=== PATIENT | male | born 1945 | race Caucasian/White ===

== ENCOUNTER 2018-07-23 11:00 | Emergency (ER) | payer BC ==
[2018-07-23 11:37] VITALS: BP 156/82; PULSE 88; RESP 20; TEMP 98.2
--- NOTE | 2018-07-23 14:25 | ED ---
Psych HPI - General Chief Complaint: Psychiatric Symptoms Stated Complaint: mental health Time Seen by Provider: 07/23/18 12:09 Source: patient, family, RN notes reviewed Mode of arrival: wheelchair - History of Present Illness Initial Comments: This is a patient with history of schizophrenia who is here for evaluation for increasing symptoms. He has no suicidal thought or ideation he apparently was possibly missed some of his medication earlier in the month. He was just discharged from the rehab unit [facility]. He did have lab work done this morning with compared with previous lab work. No other complaints this time MD Complaint: other - Related Data Home Medications Medication Instructions Recorded Confirmed ARIPiprazole [Abilify] 10 mg PO DAILY 07/23/18 07/23/18 Acetaminophen [Tylenol] 650 mg PO Q4H PRN 07/23/18 07/23/18 Albuterol Sulfate [Proventil Hfa] 1 - 2 puff INHALATION Q6HR PRN 07/23/18 Bisacodyl [Dulcolax] 10 mg RECTAL DAILY PRN 07/23/18 07/23/18 Famotidine [Pepcid] 20 mg PO BID 07/23/18 07/23/18 Furosemide [Lasix] 20 mg PO DAILY 07/23/18 07/23/18 Hydrocodone/Acetaminophen [Pullman 1 tab PO Q4H PRN 07/23/18 07/23/18 10-325] Levothyroxine Sodium [Synthroid] 100 mcg PO DAILY 07/23/18 07/23/18 Potassium Chloride [Klor-Con 20] 20 meq PO DAILY 07/23/18 07/23/18 Sennosides/Docusate Sodium 1 tab PO BID 07/23/18 07/23/18 [Senna-S Laxative Tablet] Tamsulosin HCl [Flomax] 0.4 mg PO HS 07/23/18 07/23/18 lamoTRIgine [LaMICtal] 200 mg PO TID 07/23/18 07/23/18 traZODone HCL [Desyrel] 100 mg PO HS 07/23/18 07/23/18 Allergies Allergy/AdvReac Type Severity Reaction Status Date / Time No Known Allergies Allergy Verified 07/23/18 13:23 Review of Systems ROS Statement: Those systems with pertinent positive or pertinent negative responses have been documented in the HPI. ROS Other: All systems not noted in ROS Statement are negative. Past Medical History Past Medical History: Rheumatoid Arthritis (RA), Thyroid Disorder History of Any Multi-Drug Resistant Organisms: None Reported Past Surgical History: Bowel Resection Additional Past Surgical History / Comment(s): Colectomy Past Psychological History: Anxiety, Depression, Schizophrenia Smoking Status: Never smoker Past Alcohol Use History: None Reported Past Drug Use History: None Reported General Exam - General Exam Comments Initial Comments: This is a well-developed well-nourished awake alert oriented 3 male Limitations: no limitations General appearance: alert, in no apparent distress Head exam: Present: atraumatic, normocephalic, normal inspection Eye exam: Present: normal appearance, PERRL, EOMI. Absent: scleral icterus, conjunctival injection, periorbital swelling ENT exam: Present: normal exam, mucous membranes moist Neck exam: Present: normal inspection. Absent: tenderness, meningismus, lymphadenopathy Respiratory exam: Present: normal lung sounds bilaterally. Absent: respiratory distress, wheezes, rales, rhonchi, stridor Cardiovascular Exam: Present: regular rate, normal rhythm, normal heart sounds. Absent: systolic murmur, diastolic murmur, rubs, gallop, clicks GI/Abdominal exam: Present: soft, normal bowel sounds. Absent: distended, tenderness, guarding, rebound, rigid Extremities exam: Present: normal inspection, full ROM, normal capillary refill. Absent: tenderness, pedal edema, joint swelling, calf tenderness Back exam: Present: normal inspection Neurological exam: Present: alert, oriented X3, CN II-XII intact Psychiatric exam: Present: flat affect, other Skin exam: Present: warm, dry, intact, normal color. Absent: rash Course Vital Signs 07/23/18 11:33 Temperature 98.2 F Pulse Rate 88 Respiratory 20 Rate Blood Pressure 156/82 O2 Sat by Pulse 99 Oximetry Medical Decision Making - Medical Decision Making I did review the lab work that was available. Patient was evaluated by psychiatric service and currently is not a risk to himself after discussion with family members able to take him home. He will follow palpation Disposition Clinical Impression: Schizophrenia Disposition: HOME SELF-CARE Condition: Good Instructions: Schizophrenia (ED) Is patient prescribed a controlled substance at d/c from ED?: No Referrals: Marsha Hu MD [Primary Care Provider] - 1-2 days
== END 2018-07-23 14:58 | disposition home or self-care (01) ==
LOC: EC 11:00
DX: F20.9 Schizophrenia, unspecified (principal); F41.9 Anxiety disorder, unspecified; F32.9 Major depressive disorder, single episode, unspecified; Z79.899 Other long term (current) drug therapy
CPT/HCPCS: 82075; 99283

== ENCOUNTER 2021-11-05 07:38 | Inpatient (IN) | payer MEDICARE, OTHER ==
[2021-11-05 08:25] LABS: Glucose,Whole Blood 105 mg/dL (75-99)
--- NOTE | 2021-11-05 08:28 | ED ---
Altered Mental Status HPI - General Chief Complaint: Altered Mental Status Stated Complaint: Mental Health Source: patient, EMS Mode of arrival: EMS Limitations: altered mental status - History of Present Illness Initial Comments: 76-year-old male with past medical history of schizophrenia, thyroid disorder, rheumatoid arthritis presents to the emergency department with altered mental status. EMS and provides the history. State that the patient was mildly confused yesterday however seemed to correct over the course of the day. This morning the patient awoke and did not recognize his . He was attempting to use his TV remote and incentive spirometer to call EMS. He has a history of schizophrenia. He was recently released from [facility] after diagn osis of pneumonia and renal failure. denies that he's had any missed doses of his psychiatric medications. No suicidal or homicidal ideations. Patient is only answering selected questions and therefore history is difficult to obtain. EMS arrived on scene and found the patient's oxygen to be 88%. He does have sleep apnea. Does not wear a CPAP as it does not fit his face. reports th at they were supposed to send him home on oxygen at [facility] but did not - Related Data Home Medications Medication Instructions Recorded Confirmed ARIPiprazole [Abilify] 10 mg PO DAILY 07/23/18 11/05/21 Furosemide [Lasix] 20 mg PO DAILY 07/23/18 11/05/21 Tamsulosin HCl [Flomax] 0.4 mg PO BID 07/23/18 11/05/21 lamoTRIgine [LaMICtal] 200 mg PO TID 07/23/18 11/05/21 traZODone HCL [Desyrel] 100 mg PO HS 07/23/18 11/05/21 Allopurinol [Zyloprim] 300 mg PO DAILY 11/05/21 11/05/21 Bethanechol Chloride 50 mg PO TID 11/05/21 11/05/21 Levothyroxine Sodium 88 mcg PO DAILY 11/05/21 11/05/21 Metoprolol Succinate (ER) [Toprol 25 mg PO DAILY 11/05/21 11/05/21 Xl] Mupirocin 2% Oint [Bactroban 2% 1 applic TOPICAL TID 11/05/21 11/05/21 Oint] Allergies Allergy/AdvReac Type Severity Reaction Status Date / Time Calcium Channel Blocking AdvReac Swelling Verified 11/05/21 09:17 Agent Dilt of feet Calcium Channel Blocking AdvReac Swelling Verified 11/05/21 09:17 Agents-Dih of feet lansoprazole [From Prevacid] AdvReac Swelling Verified 11/05/21 09:17 of feet Review of Systems ROS Statement: Those systems with pertinent positive or pertinent negative responses have been documented in the HPI. ROS Other: All systems not noted in ROS Statement are negative. Past Medical History Past Medical History: Rheumatoid Arthritis (RA), Thyroid Disorder History of Any Multi-Drug Resistant Organisms: None Reported Past Surgical History: Bowel Resection Additional Past Surgical History / Comment(s): Colectomy Past Psychological History: Anxiety, Depression, Schizophrenia Smoking Status: Unknown if ever smoked Past Alcohol Use History: None Reported Past Drug Use History: None Reported - Past Family History Mother Additional Family Medical History / Comment(s): Cancer General Exam Limitations: altered mental status Course Vital Signs 11/05/21 11/05/21 11/05/21 07:40 09:00 10:26 Temperature 97.5 F L Pulse Rate 74 68 66 Respiratory 20 20 18 Rate Blood Pressure 118/64 128/65 137/78 O2 Sat by Pulse 93 L 97 99 Oximetry 11/05/21 11/05/21 11:27 15:17 Temperature Pulse Rate 69 71 Respiratory 18 18 Rate Blood Pressure 159/83 136/75 O2 Sat by Pulse 98 99 Oximetry Medical Decision Making - Medical Decision Making Upon arrival patient was placed into 12. A thorough history and physical exam was performed. Patient is placed on 2 L of oxygen. Laboratory studies are conducted. Patient has pancytopenia which is stable. CO2 mildly high at 57. Urinalysis demonstrates 6 white blood cells with few bacteria. CT of the brain is performed which demonstrates no acute intracranial abnormality or gross space-occupying lesion. No acute traumatic bony injury of the cervical spine. Chest x-ray demonstrates acute pulmonary edema. Associated infection can't be excluded. I discussed the results with Dr. Silver who accepted admission of the patient. Patient pending a bed on the floor - Lab Data Result diagrams: 11/05/21 08:25 11/05/21 08:25 Lab Results 11/05/21 11/05/21 11/05/21 Range/Units 08:09 08:19 08:25 WBC 2.3 L (3.8-10.6) k/uL RBC 2.72 L (4.30-5.90) m/uL Hgb 8.3 L (13.0-17.5) gm/dL Hct 27.1 L (39.0-53.0) % MCV 99.7 (80.0-100.0) fL MCH 30.6 (25.0-35.0) pg MCHC 30.7 L (31.0-37.0) g/dL RDW 15.2 (11.5-15.5) % Plt Count 106 L (150-450) k/uL MPV 8.4 Neutrophils % 58 % Lymphocytes % 24 % Monocytes % 6 % Eosinophils % 9 % Basophils % 1 % Neutrophils # 1.4 (1.3-7.7) k/uL Lymphocytes # 0.6 L (1.0-4.8) k/uL Monocytes # 0.2 (0-1.0) k/uL Eosinophils # 0.2 (0-0.7) k/uL Basophils # 0.0 (0-0.2) k/uL Hypochromasia Moderate Macrocytosis Slight PT (9.0-12.0) sec INR (<1.2) APTT (22.0-30.0) sec VBG pH (7.31-7.41) VBG pCO2 (37-51) mmHg VBG HCO3 (24-28) mmol/L Sodium (137-145) mmol/L Potassium (3.5-5.1) mmol/L Chloride (98-107) mmol/L Carbon Dioxide (22-30) mmol/L Anion Gap mmol/L BUN (9-20) mg/dL Creatinine (0.66-1.25) mg/dL Est GFR (CKD-EPI)AfAm (>60 ml/min/1.73 sqM) Est GFR (CKD-EPI)NonAf (>60 ml/min/1.73 sqM) Glucose (74-99) mg/dL POC Glucose (mg/dL) 105 H (75-99) mg/dL POC Glu Audio Production Instructor ID Otto Diane Plasma Lactic Acid David (0.7-2.0) mmol/L Calcium (8.4-10.2) mg/dL Total Bilirubin (0.2-1.3) mg/dL AST (17-59) U/L ALT (4-49) U/L Alkaline Phosphatase (38-126) U/L Ammonia (<30) umol/L Troponin I (0.000-0.034) ng/mL Total Protein (6.3-8.2) g/dL Albumin (3.5-5.0) g/dL TSH (0.465-4.680) mIU/L Free T4 (0.78-2.19) ng/dL Urine Color Yellow Urine Appearance Clear (Clear) Urine pH 7.0 (5.0-8.0) Ur Specific [place] 1.019 (1.001-1.035) Urine Protein 1+ H (Negative) Urine Glucose (UA) Negative (Negative) Urine Ketones Negative (Negative) Urine Blood Trace H (Negative) Urine Nitrite Negative (Negative) Urine Bilirubin Negative (Negative) Urine Urobilinogen <2.0 (<2.0) mg/dL Ur Leukocyte Esterase Small H (Negative) Urine RBC 17 H (0-5) /hpf Urine WBC 6 H (0-5) /hpf Urine Bacteria Few H (None) /hpf Urine Mucus Rare H (None) /hpf Salicylates mg/dL Urine Opiates Screen Not Detected (NotDetected) Ur Oxycodone Screen Not Detected (NotDetected) Urine Methadone Screen Not Detected (NotDetected) Ur Propoxyphene Screen Not Detected (NotDetected) Acetaminophen ug/mL Ur Barbiturates Screen Not Detected (NotDetected) U Tricyclic Antidepress Not Detected (NotDetected) Ur Phencyclidine Scrn Not Detected (NotDetected) Ur Amphetamines Screen Not Detected (NotDetected) U Methamphetamines Scrn Not Detected (NotDetected) U Benzodiazepines Scrn Not Detected (NotDetected) Urine Cocaine Screen Not Detected (NotDetected) U Marijuana (THC) Screen Not Detected (NotDetected) Serum Alcohol mg/dL 11/05/21 11/05/21 11/05/21 Range/Units 08:25 08:25 08:25 WBC (3.8-10.6) k/uL RBC (4.30-5.90) m/uL Hgb (13.0-17.5) gm/dL Hct (39.0-53.0) % MCV (80.0-100.0) fL MCH (25.0-35.0) pg MCHC (31.0-37.0) g/dL RDW (11.5-15.5) % Plt Count (150-450) k/uL MPV Neutrophils % % Lymphocytes % % Monocytes % % Eosinophils % % Basophils % % Neutrophils # (1.3-7.7) k/uL Lymphocytes # (1.0-4.8) k/uL Monocytes # (0-1.0) k/uL Eosinophils # (0-0.7) k/uL Basophils # (0-0.2) k/uL Hypochromasia Macrocytosis PT 10.0 (9.0-12.0) sec INR 0.9 (<1.2) APTT 28.2 (22.0-30.0) sec VBG pH (7.31-7.41) VBG pCO2 (37-51) mmHg VBG HCO3 (24-28) mmol/L Sodium 138 (137-145) mmol/L Potassium 4.5 (3.5-5.1) mmol/L Chloride 103 (98-107) mmol/L Carbon Dioxide 31 H (22-30) mmol/L Anion Gap 4 mmol/L BUN 30 H (9-20) mg/dL Creatinine 1.35 H (0.66-1.25) mg/dL Est GFR (CKD-EPI)AfAm 58 (>60 ml/min/1.73 sqM) Est GFR (CKD-EPI)NonAf 50 (>60 ml/min/1.73 sqM) Glucose 99 (74-99) mg/dL POC Glucose (mg/dL) (75-99) mg/dL POC Glu Audio Production Instructor ID Plasma Lactic Acid David 1.4 (0.7-2.0) mmol/L Calcium 8.9 (8.4-10.2) mg/dL Total Bilirubin 0.8 (0.2-1.3) mg/dL AST 35 (17-59) U/L ALT 25 (4-49) U/L Alkaline Phosphatase 40 (38-126) U/L Ammonia <9 (<30) umol/L Troponin I (0.000-0.034) ng/mL Total Protein 6.2 L (6.3-8.2) g/dL Albumin 3.4 L (3.5-5.0) g/dL TSH 4.980 H (0.465-4.680) mIU/L Free T4 1.03 (0.78-2.19) ng/dL Urine Color Urine Appearance (Clear) Urine pH (5.0-8.0) Ur Specific [place] (1.001-1.035) Urine Protein (Negative) Urine Glucose (UA) (Negative) Urine Ketones (Negative) Urine Blood (Negative) Urine Nitrite (Negative) Urine Bilirubin (Negative) Urine Urobilinogen (<2.0) mg/dL Ur Leukocyte Esterase (Negative) Urine RBC (0-5) /hpf Urine WBC (0-5) /hpf Urine Bacteria (None) /hpf Urine Mucus (None) /hpf Salicylates <1.0 mg/dL Urine Opiates Screen (NotDetected) Ur Oxycodone Screen (NotDetected) Urine Methadone Screen (NotDetected) Ur Propoxyphene Screen (NotDetected) Acetaminophen <10.0 ug/mL Ur Barbiturates Screen (NotDetected) U Tricyclic Antidepress (NotDetected) Ur Phencyclidine Scrn (NotDetected) Ur Amphetamines Screen (NotDetected) U Methamphetamines Scrn (NotDetected) U Benzodiazepines Scrn (NotDetected) Urine Cocaine Screen (NotDetected) U Marijuana (THC) Screen (NotDetected) Serum Alcohol <10 mg/dL 11/05/21 11/05/21 Range/Units 08:25 08:25 WBC (3.8-10.6) k/uL RBC (4.30-5.90) m/uL Hgb (13.0-17.5) gm/dL Hct (39.0-53.0) % MCV (80.0-100.0) fL MCH (25.0-35.0) pg MCHC (31.0-37.0) g/dL RDW (11.5-15.5) % Plt Count (150-450) k/uL MPV Neutrophils % % Lymphocytes % % Monocytes % % Eosinophils % % Basophils % % Neutrophils # (1.3-7.7) k/uL Lymphocytes # (1.0-4.8) k/uL Monocytes # (0-1.0) k/uL Eosinophils # (0-0.7) k/uL Basophils # (0-0.2) k/uL Hypochromasia Macrocytosis PT (9.0-12.0) sec INR (<1.2) APTT (22.0-30.0) sec VBG pH 7.36 (7.31-7.41) VBG pCO2 57 H (37-51) mmHg VBG HCO3 32 H (24-28) mmol/L Sodium (137-145) mmol/L Potassium (3.5-5.1) mmol/L Chloride (98-107) mmol/L Carbon Dioxide (22-30) mmol/L Anion Gap mmol/L BUN (9-20) mg/dL Creatinine (0.66-1.25) mg/dL Est GFR (CKD-EPI)AfAm (>60 ml/min/1.73 sqM) Est GFR (CKD-EPI)NonAf (>60 ml/min/1.73 sqM) Glucose (74-99) mg/dL POC Glucose (mg/dL) (75-99) mg/dL POC Glu Audio Production Instructor ID Plasma Lactic Acid David (0.7-2.0) mmol/L Calcium (8.4-10.2) mg/dL Total Bilirubin (0.2-1.3) mg/dL AST (17-59) U/L ALT (4-49) U/L Alkaline Phosphatase (38-126) U/L Ammonia (<30) umol/L Troponin I <0.012 (0.000-0.034) ng/mL Total Protein (6.3-8.2) g/dL Albumin (3.5-5.0) g/dL TSH (0.465-4.680) mIU/L Free T4 (0.78-2.19) ng/dL Urine Color Urine Appearance (Clear) Urine pH (5.0-8.0) Ur Specific [place] (1.001-1.035) Urine Protein (Negative) Urine Glucose (UA) (Negative) Urine Ketones (Negative) Urine Blood (Negative) Urine Nitrite (Negative) Urine Bilirubin (Negative) Urine Urobilinogen (<2.0) mg/dL Ur Leukocyte Esterase (Negative) Urine RBC (0-5) /hpf Urine WBC (0-5) /hpf Urine Bacteria (None) /hpf Urine Mucus (None) /hpf Salicylates mg/dL Urine Opiates Screen (NotDetected) Ur Oxycodone Screen (NotDetected) Urine Methadone Screen (NotDetected) Ur Propoxyphene Screen (NotDetected) Acetaminophen ug/mL Ur Barbiturates Screen (NotDetected) U Tricyclic Antidepress (NotDetected) Ur Phencyclidine Scrn (NotDetected) Ur Amphetamines Screen (NotDetected) U Methamphetamines Scrn (NotDetected) U Benzodiazepines Scrn (NotDetected) Urine Cocaine Screen (NotDetected) U Marijuana (THC) Screen (NotDetected) Serum Alcohol mg/dL - EKG Data EKG Comments: EKG demonstrates a sinus rhythm with a rate of 71. IN interval 215. QRS 19. QTC of 407. Q waves in lead 3. No acute ST segment elevations Disposition Clinical Impression: Acute encephalopathy, Psychosis, Abnormal urinalysis, Hypercarbia, Hypoxia, Pancytopenia Disposition: ADMITTED IP TO THIS [facility] Condition: Stable Is patient prescribed a controlled substance at d/c from ED?: No Decision to Admit Reason: Admit from EC Decision Date: 11/05/21 Decision Time: 11:01
[2021-11-05 08:31] LABS: Basophils % (A) 1 %; Eosinophils # (A) 0.2 k/uL (0-0.7); Eosinophils % (A) 9 %; HCT 27.1 % (39.0-53.0); HGB 8.3 gm/dL (13.0-17.5); Hypochromasia Moderate; Lymphocytes # (A) 0.6 k/uL (1.0-4.8); Lymphocytes % (A) 24 %; MCH 30.6 pg (25.0-35.0); MCHC 30.7 g/dL (31.0-37.0); MCV 99.7 fL (80.0-100.0); Macrocytosis Slight; Mean Platelet Volume 8.4; Monocytes # (A) 0.2 k/uL (0-1.0); Monocytes % (A) 6 %; Neutrophils # (A) 1.4 k/uL (1.3-7.7); Neutrophils % (A) 58 %; Platelet Count 106 k/uL (150-450); RBC 2.72 m/uL (4.30-5.90); RDW 15.2 % (11.5-15.5); WBC 2.3 k/uL (3.8-10.6)
[2021-11-05 08:36] LABS: VBG PH 7.36 (7.31-7.41)
[2021-11-05 08:42] LABS: Lactic Acid, Venous 1.4 mmol/L (0.7-2.0)
[2021-11-05 08:44] LABS: ALT 25 U/L (4-49); Acetaminophen <10.0 ug/mL; African American GFR (CKD) 58 (>60 ml/min/1.73 sqM); Alcohol <10 mg/dL; Anion Gap 4 mmol/L; Blood Urea Nitrogen 30 mg/dL (9-20); Calcium 8.9 mg/dL (8.4-10.2); Carbon Dioxide 31 mmol/L (22-30); Chloride 103 mmol/L (98-107); Glucose 99 mg/dL (74-99); Non-African American GFR(CKD) 50 (>60 ml/min/1.73 sqM); Salicylate <1.0 mg/dL; Sodium 138 mmol/L (137-145); Total Bilirubin 0.8 mg/dL (0.2-1.3)
[2021-11-05 08:53] LABS: Potassium 4.5 mmol/L (3.5-5.1)
[2021-11-05 08:54] LABS: AST 35 U/L (17-59); Albumin 3.4 g/dL (3.5-5.0); Alkaline Phosphatase 40 U/L (38-126); Total Protein 6.2 g/dL (6.3-8.2)
[2021-11-05 08:56] LABS: INR 0.9 (<1.2); Partial Thromboplastin Time 28.2 sec (22.0-30.0)
--- NOTE | 2021-11-05 09:14 | XR ---
EXAMINATION TYPE: XR chest 2V DATE OF EXAM: 11/05/2021 COMPARISON: X-ray dated 08/09/2017 HISTORY: Altered mental status TECHNIQUE: Frontal and lateral views of the chest are obtained. FINDINGS: Increased cardiac transverse diameter with pulmonary vascular congestion, prominent interstitial makcenzie ings and subtle alveolar opacities which could be related to incomplete lung expansion however associ ated pulmonary edema can't be excluded, please relate clinically. Suspected subtle opacity in the lef t retrocardiac location versus artifact, please correlate clinically to rule out infection. Elevated right hemidiaphragm. Questionable small left pleural effusion. No right-sided pleural effusi on or definite pneumothorax. Aortic atherosclerotic calcifications. Hiatal hernia cannot be excluded. Double scoliotic curvature of the thoracic spine. IMPRESSION: Findings are suggestive of acute pulmonary edema, associated infection can't be excluded , please correlate clinically. Other findings as described above.
[2021-11-05 09:32] LABS: Appearance,Urine Clear (Clear); Bacteria,Urine Few /hpf; Bilirubin,Urine Negative (Negative); Blood,Urine Trace (Negative); Color,Urine Yellow; Glucose,Urine (UA) Negative (Negative); Ketones,Urine Negative (Negative); Leukocyte Esterase,Urine Small (Negative); Mucus,Urine Rare /hpf; Nitrite,Urine Negative (Negative); Protein,Urine 1+ (Negative); RBC,Urine 17 /hpf (0-5); Specific Gravity,Urine 1.019 (1.001-1.035); Urobilinogen,Urine <2.0 mg/dL (<2.0); WBC,Urine 6 /hpf (0-5)
[2021-11-05 09:38] LABS: Amphetamine Screen,Urine Not Detected (NotDetected); Barbiturate Screen,Urine Not Detected (NotDetected); Benzodiazepines Screen,Urine Not Detected (NotDetected); Cocaine Screen,Urine Not Detected (NotDetected); Methadone Screen, Urine Not Detected (NotDetected); Opiate Screen,Urine Not Detected (NotDetected); Oxycodone Screen, Urine Not Detected (NotDetected); Phencyclidine Screen,Urine Not Detected (NotDetected); Tricyclic Antidepressant,Urine Not Detected (NotDetected); Urn Cannabinoid Scrn Not Detected (NotDetected)
[2021-11-05 09:46] LABS: T4, Free (Free Thyroxine) 1.03 ng/dL (0.78-2.19)
--- NOTE | 2021-11-05 09:49 | CT ---
EXAMINATION TYPE: CT brain tatyana santo con DATE OF EXAM: 11/05/2021 COMPARISON: None available HISTORY: AMS CT DLP: 2226.6 mGycm Automated exposure control for dose reduction was used. TECHNIQUE: CT scan of the head and cervical spine are performed without contrast. FINDINGS: Brain: Generalized brain volume loss changes, likely age-related. Scattered arterial atherosclerotic calcifi cations. No acute intracranial hemorrhage or gross acute cortical infarct. No midline shift or hernia tion. Unremarkable basal cisterns, sella and CP angles. No gross space-occupying lesion, vasogenic ed chet or mass effect. No gross orbital abnormality. Minimal mucosal thickening of the left maxillary sinus with more mucosa l thickening of the sphenoid sinus and ethmoid air cells. Slightly opacified right mastoid air cells. Clear left mastoid cells. No definite acute calvarial bone fracture identified. Cervical spine: Reversal of normal cervical curvature. No definite vertebral body collapse or acute displaced fractur e. Unremarkable atlantoaxial and atlantooccipital articulations. No facet dislocation or significant subluxation. Mild anterolisthesis of C3 over C4, likely degenerative. Marked degenerative changes at C5-6 and C6-7 levels with opposing endplate osteophytosis, degenerated discs and uncovertebral arthropathy. Multilevel facet osteoarthropathy is also noted. Right C2-3, ri ght C4-5, bilateral C5-6 and mild bilateral C6-7 neural foraminal stenosis. No significant bony central spinal canal stenosis. Scattered arterial atherosclerotic calcifications. No paraspinal lesion. Nonspecific groundglass opacity of the lung apex. IMPRESSION: 1. No acute intracranial abnormality or gross space-occupying lesion by this nonenhanced CT scan. 2. No acute traumatic bony injury of the cervical spine. Incidental findings as described above.
[2021-11-05] MEDS ORDERED: cefTRIAXone IN SWFI 1,000 MG/10 ML SYRINGE IVP STA (10:48)
[2021-11-05] MEDS ORDERED: NALOXONE 0.4 MG/ML 1 ML VIAL IV PRN (11:01)
--- NOTE | 2021-11-05 12:39 | P.HPIM ---
History of Present Illness H&P Date: 11/05/21 History of Presenting Illness: Patient is a 76-year-old male with a past medical history of dementia, rheumatoid arthritis, hypertension, obstructive sleep apnea unable to tolerate CPAP/BiPAP, hypothyroidism, schizophrenia, anxiety, and depression. He presented to the emergency department with a chief complaint of alteration in mental status. Patient's reports he was recently released from [facility] after diagnosis of pneumonia and renal failure and that her has exhibited increased confusion over the past 24 hours. She reports upon awakening this morning he did not recognize her and was using the TV remote as his incentive spirometer so she called EMS for further evaluation. In the emergency department, patient underwent full evaluation. An EKG was completed revealing sinus rhythm at 71 bpm with no noted T-wave or ST abnormalities showing no signs of acute ischemia. Chest x-ray revealing or stumble pulmonary edema. Labs revealing pancytopenia with WBC count of 2.3, hemoglobin of 8.3, and platelet count of 106. Venous blood gas revealing compensated metabolic acidosis with pH of 7.36 pCO2 of 57 and bicarb of 32. BUN 30, creatinine 1.35, and GFR 50. Urinalysis revealing trace blood, 17 RBCs, and 6 WBCs. Urine drug screen negative. CT head and CT spine negative for injuries. Upon evaluation at bedside, patient's reports patient currently had normal mentation and alert to person and place only. Patient's states that she brought her here because she is concerned that he becomes hypoxic overnight and this is why he is confused in the mornings and states while he is here she would also like him seen by his urologist because he has an appointment next week and would like him to see him while he is in the hospital. She denies Her recently experiencing any fever, chills, diaphoresis, complaints of nausea, or vomiting. She denies increased swelling in his lower extremities. Patient also states that she is pretty sure her has been hallucinating and would like him evaluated by the psychiatrist. Patient appears to be resting comfortably and denies having any complaints or pain. Vital signs unremarkable with blood pressure 137/78, heart rate 66, respiratory rate 18, and SpO2 of 99% on room air. Review of systems: Pertinent positives and negatives as discussed in HPI, a complete review of systems was performed and all other systems are negative. Physical exam: Vital signs reviewed and stable. General: Nontoxic, no distress and appears stated age. Derm: Skin warm and dry, normal coloration for ethnicity. Head: Atraumatic, normocephalic and symmetric. Heart of hearing. Eyes: EOMs intact, no lid lag, and anicteric sclera Mouth: no lip lesions, mucus membranes moist Cardiovascular: regular rate and rhythm with normal S1S2, no murmur, positive posterior tibial pulses bilaterally, and cap refill < 2 seconds. Lungs: Respirations even, regular, and unlabored on room air. Lungs CTA bilaterally, no rhonchi, no rales, no wheezing, and no accessory muscle usage. GI/: obese abdomen soft, nontender to palpation, no guarding, no appreciable organomegaly. Indwelling Dutta catheter in place Ext: ROM intact. No gross muscle atrophy, 2+ pitting bilateral lower extremity edema, no contractures Neuro: Speech clear, face symmetrical and CN II-XII grossly intact with no noted focal neuro deficits. GCS 14. Psych: Alert and oriented to person and place and confused to time and situation. Patient appropriate and pleasant affect and follows commands easily. Assessment and Plan of Care: Increased Alteration in mental status in patient with a past medical history of dementia Reports of possible hallucinations History of schizophrenia, anxiety, and depression -Patient to resume home daily medication regimen with Abilify, Lamictal, and trazodone. -Psychiatry following. -We will obtain a pro-calcitonin to rule out possible infection, patient did receive 1 dose of IV Rocephin in the ER and his pro-calcitonin is positive we will reorder appropriate antibiotics at that time. -Neuro checks -Fall precautions -Provide safe and supportive care with redirection as needed. hypertension Monitor vital signs and continue daily medication regimen. Hypothyroidism Continue daily medication regimen with level thyroxine. Obstructive sleep apnea We will continue to monitor patient, recommend patient follow up outpatient with sleep study. The patient is admitted with aanticipated less than 2 midnight stay for evaluation of increased alteration in mental status Surrogate decision-maker:Patient's CODE STATUS: DO NOT RESUSCITATE/DO NOT INTUBATE DVT prophylaxis: Heparin Discussed with: Patient, patient's , and RN Anticipated discharge date: Tomorrow morning Anticipated discharge place: Home with home care/palliative care discussed p alliative care with patient's A total of 40 minutes was spent on the care of this complex patient more than 50% of the time was spent in counseling and care coordination. Billy Birch NP rendered care for this patient independently, reviewed the findings and plan as documented in the note above. I did not physically speak with or examine the patient on this date. Past Medical History Past Medical History: Rheumatoid Arthritis (RA), Thyroid Disorder History of Any Multi-Drug Resistant Organisms: None Reported Past Surgical History: Bowel Resection Additional Past Surgical History / Comment(s): Colectomy Past Psychological History: Anxiety, Depression, Schizophrenia Smoking Status: Unknown if ever smoked Past Alcohol Use History: None Reported Past Drug Use History: None Reported - Past Family History Mother Additional Family Medical History / Comment(s): Cancer Medications and Allergies Home Medications Medication Instructions Recorded Confirmed Type ARIPiprazole [Abilify] 10 mg PO DAILY 07/23/18 11/05/21 History Furosemide [Lasix] 20 mg PO DAILY 07/23/18 11/05/21 History Tamsulosin HCl [Flomax] 0.4 mg PO BID 07/23/18 11/05/21 History lamoTRIgine [LaMICtal] 200 mg PO TID 07/23/18 11/05/21 History traZODone HCL [Desyrel] 100 mg PO HS 07/23/18 11/05/21 History Allopurinol [Zyloprim] 300 mg PO DAILY 11/05/21 11/05/21 History Bethanechol Chloride 50 mg PO TID 11/05/21 11/05/21 History Levothyroxine Sodium 88 mcg PO DAILY 11/05/21 11/05/21 History Metoprolol Succinate (ER) [Toprol 25 mg PO DAILY 11/05/21 11/05/21 History Xl] Mupirocin 2% Oint [Bactroban 2% 1 applic TOPICAL TID 11/05/21 11/05/21 History Oint] Allergies Allergy/AdvReac Type Severity Reaction Status Date / Time Calcium Channel Blocking AdvReac Swelling Verified 11/05/21 09:17 Agent Dilt of feet Calcium Channel Blocking AdvReac Swelling Verified 11/05/21 09:17 Agents-Dih of feet lansoprazole [From Prevacid] AdvReac Swelling Verified 11/05/21 09:17 of feet Physical Exam Osteopathic Statement: *. No significant issues noted on an osteopathic structural exam other than those noted in the History and Physical/Consult. Vitals: Vital Signs Temp Pulse Resp BP Pulse Ox 11/05/21 11:27 69 18 159/83 98 11/05/21 10:26 66 18 137/78 99 11/05/21 09:00 68 20 128/65 97 11/05/21 07:40 97.5 F L 74 20 118/64 93 L Intake and Output 11/04/21 11/05/21 11/05/21 22:59 06:59 14:59 Other: Weight 129.274 kg Results CBC & Chem 7: 11/05/21 08:25 11/05/21 08:25 Labs: Abnormal Lab Results - Last 24 Hours (Table) 11/05/21 11/05/21 11/05/21 Range/Units 08:09 08:19 08:25 WBC 2.3 L (3.8-10.6) k/uL RBC 2.72 L (4.30-5.90) m/uL Hgb 8.3 L (13.0-17.5) gm/dL Hct 27.1 L (39.0-53.0) % MCHC 30.7 L (31.0-37.0) g/dL Plt Count 106 L (150-450) k/uL Lymphocytes # 0.6 L (1.0-4.8) k/uL VBG pCO2 (37-51) mmHg VBG HCO3 (24-28) mmol/L Carbon Dioxide (22-30) mmol/L BUN (9-20) mg/dL Creatinine (0.66-1.25) mg/dL POC Glucose (mg/dL) 105 H (75-99) mg/dL Total Protein (6.3-8.2) g/dL Albumin (3.5-5.0) g/dL TSH (0.465-4.680) mIU/L Urine Protein 1+ H (Negative) Urine Blood Trace H (Negative) Ur Leukocyte Esterase Small H (Negative) Urine RBC 17 H (0-5) /hpf Urine WBC 6 H (0-5) /hpf Urine Bacteria Few H (None) /hpf Urine Mucus Rare H (None) /hpf 11/05/21 11/05/21 Range/Units 08:25 08:25 WBC (3.8-10.6) k/uL RBC (4.30-5.90) m/uL Hgb (13.0-17.5) gm/dL Hct (39.0-53.0) % MCHC (31.0-37.0) g/dL Plt Count (150-450) k/uL Lymphocytes # (1.0-4.8) k/uL VBG pCO2 57 H (37-51) mmHg VBG HCO3 32 H (24-28) mmol/L Carbon Dioxide 31 H (22-30) mmol/L BUN 30 H (9-20) mg/dL Creatinine 1.35 H (0.66-1.25) mg/dL POC Glucose (mg/dL) (75-99) mg/dL Total Protein 6.2 L (6.3-8.2) g/dL Albumin 3.4 L (3.5-5.0) g/dL TSH 4.980 H (0.465-4.680) mIU/L Urine Protein (Negative) Urine Blood (Negative) Ur Leukocyte Esterase (Negative) Urine RBC (0-5) /hpf Urine WBC (0-5) /hpf Urine Bacteria (None) /hpf Urine Mucus (None) /hpf
--- NOTE | 2021-11-05 14:35 | P.CN ---
Psychiatric Consult - . Consult date: 11/05/21 Consult:: 11/05/21 13:19 IDENTIFYING DATA: This patient is a 76-year-old male, history of schizophrenia, currently lives with his in a house, has 2 daughters. REASON FOR REFERRAL: Psychiatry was consulted for "delirium, history of schizophrenia". HISTORY OF PRESENT ILLNESS: The patient presented to the hospital on 11/05 for altered mental status. Patient's claims that he became confused yesterday and progressed to worsen until this morning he was not able to recognize her. She was brought in by EMS. Patient was recently discharged from [facility] for renal failure and pneumonia. Patient apparently was a poor historian in the ER and could not give good information. Patient's UDS was negative. Negative blood alcohol. Troponins were negative. WBCs 2.3 were low. Patient's nurse claims that patient was initially confused when he came in the hospital her present proved dramatically since then and is more appropriate in responding. She states that he is more appropriate during questioning and more alert. Patient was seen at the bedside with his . claims that patient was talking nonsensically for coming in the hospital and recently was recovering from pneumonia and renal failure [facility]. He states that he is improved since being in the hospital. She claims that he was using the remote at home to call for help. Patient was seen and polite and directable during conversation. She has had slowed down, poor eye contact however was answering appropriately. He states that he was feeling confused before coming in the hospital now feels better. He is denying any problems that his mood no depression or anxiety today. He states that he is taking his medications and he knows he needs it for schizophrenia. He has a history of epilepsy. Alarm Mechanic asked patient about his La mictal and states that he has been on this dose of 200 mg 3 times a day for over 1 year now and was being followed by a neurologist. He seems very future oriented. He was alert and oriented 2 believed that it was the year 2022 however knew the current month. He could not spell world backwards. He knows the current Presidemnt is. At this time patient denies any suicidal or homical ideations, intent or plan. Patient denies any auditory, visual hallucinations and denies any paranoia or delusions. Patients admits to using no recreational drugs or cigarettes PAST PSYCHIATRIC HISTORY: Patient has a a history of schizophrenia. Patient is currently on Lamictal 200 mg 3 times a day, trazodone 100 mg daily at bedtime, Abilify 10 mg by mouth daily. Patient claims that he was hospitalized 3 times in the past psychiatrically once in 1991, [id number]. Patient denies any psychiatric outpatient follow-up. Things that he currently follows up with his primary care provider for her psychiatric meds. Patient denies any history of suicide attempts in the past. PAST MEDICAL HISTORY: As per medicine H&P. ALLERGIES: as per EMR. CHEMICAL DEPENDENCY HISTORY: as per HPI. FAMILY PSYCHIATRIC/SUBSTANCE USE HISTORY: Claims that his aunt and mother both had severe mental illness?, Claims that his daughter has bipolar disorder. SOCIAL HISTORY: Patient was born and raised in [facility]. He completed high school and did some college. He apparently was in assisted in 1991 for criminal sexual conduct. 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 Criminal living with his in a house has 2 daughters. MENTAL STATUS EXAM: General Appearance: Patient appears to be overweight, wearing glasses, had slowed down stated age is alert, pleasant, and cooperative. Patient appears to have fair hygiene and grooming wearing hospital gown with poor eye contact. Behavior: Patient is calmly lying in bed without any agitated behavior. Had slowed down. Speech: Patient's speech is fluent and nonpressured. [place]. Mood/Affect: Patient reports their mood is "ok now", affect is congruent Suicidality/Homicidality: Patient denies having any suicidal or homicidal ideation intent or plan. Perceptions: Patient denies any visual hallucinations and denies any auditory hallucinations Though content/process: [place], appropriate, not endorsing any delusions. Memory and concentration: AOX2, does not know today's date, believes it is October 2022., grossly intact for the purposes of this session. Cannot spell "WORLD" backwards Judgment and insight: There IMPRESSIONS: Schizophrenia Possible seizure versus hypoxic event? PLAN: -At this time patient DOES NOT meet criteria for inpatient psychiatric admission. -Delirium precautions recommended with patient including - avoiding use of narcotics and BOARDER HAND sedatives, limit anticholinergic medications when possible, frequent re-orientation, minimize use of restraints, open window shades during the day and close them at night -Would recommend the following medication changes/additions: Can continue with same home medications at this time. -bushel worker to provide patient with outpatient mental health/psychiatry resources for appropriate follow up upon discharge. Patient really should be following up with a psychiatrist to monitor his medications for schizophrenia. -Communicated plan to patient's nurse -Psychiatry will sign off at this time -Please contact with any questions. 11/05/21 13:19 11/05/21 14:29
[2021-11-05] MEDS: lamoTRIgine 100 MG TAB PO SCH ×2 (17:11→21:07)
[2021-11-05] MEDS: MUPIROCIN 2% OINT 22 GM TUBE TOPICAL SCH (17:11)
[2021-11-05] MEDS: BETHANECHOL 25 MG TAB PO SCH ×2 (17:11→21:07)
[2021-11-05] MEDS: TAMSULOSIN 0.4 MG CAP.ER.24H PO SCH (21:07)
[2021-11-05] MEDS: traZODone HCL 100 MG TAB PO SCH (21:07)
[2021-11-06] MEDS: MUPIROCIN 2% OINT 22 GM TUBE TOPICAL SCH ×4 (02:13→20:12)
[2021-11-06] MEDS: HEPARIN SODIUM,PORCINE/PF 5,000 UNIT/0.5 ML SYRINGE SQ SCH ×3 (02:14→17:27)
[2021-11-06] MEDS: LEVOTHYROXINE 88 MCG TAB PO SCH (06:07)
[2021-11-06] MEDS: lamoTRIgine 100 MG TAB PO SCH ×3 (08:20→19:50)
[2021-11-06] MEDS: METOPROLOL SUCCINATE (ER) 25 MG TAB.ER.24H PO SCH (08:20)
[2021-11-06] MEDS: FUROSEMIDE 20 MG TAB PO SCH (08:20)
[2021-11-06] MEDS: allopurinoL 300 MG TAB PO SCH (08:21)
[2021-11-06] MEDS: ARIPiprazole 10 MG TAB PO SCH (08:21)
[2021-11-06] MEDS: TAMSULOSIN 0.4 MG CAP.ER.24H PO SCH ×2 (08:21→19:50)
[2021-11-06] MEDS: BETHANECHOL 25 MG TAB PO SCH ×3 (08:21→19:50)
[2021-11-06 09:00] LABS: Basophils # (A) 0.02 X 10*3/uL (0.00-0.10); Basophils % (A) 0.8 %; Eosinophils # (A) 0.22 X 10*3/uL (0.04-0.35); Eosinophils % (A) 8.9 %; HCT 27.7 % (39.6-50.0); HGB 7.9 g/dL (13.0-17.0); Immature Grans, Automated 0.4 %; Lymphocytes # (A) 0.66 X 10*3/uL (0.90-5.00); Lymphocytes % (A) 26.7 %; MCH 28.5 pg (27.0-32.0); MCHC 28.5 g/dL (32.0-37.0); Mean Platelet Volume 11.2 fL (9.5-12.2); Monocytes # (A) 0.27 X 10*3/uL (0.20-1.00); Monocytes % (A) 10.9 %; NRBC Per 100 WBC 0 /100 WBCS (0.0-0.0); Neutrophils # (A) 1.29 X 10*3/uL (1.80-7.70); Neutrophils % (A) 52.3 %; Platelet Count 116 X 10*3/uL (140-440); RBC 2.77 X 10*6/uL (4.40-5.60); RDW 15.7 % (11.5-14.5); WBC 2.47 X 10*3/uL (4.50-10.00)
[2021-11-06 09:19] LABS: African American GFR (CKD) 60.6 (60.0-200.0); BUN/Creat Ratio 15.69 Ratio (12.00-20.00); Blood Urea Nitrogen 20.4 mg/dL (9.0-27.0); Calcium 9.2 mg/dL (8.7-10.3); Non-African American GFR(CKD) 52.3 (60.0-200.0); Potassium 4.4 mmol/L (3.5-5.5)
--- NOTE | 2021-11-06 17:03 | P.PN ---
Subjective Progress Note Date: 11/06/21 No new complaints. Confusion is at his baseline. says she cannot care for him at home. CM/SW working on dispo. Gen: awake, alert, confused HEENT: normocephalic, atraumatic, good hearing acuity, moist mucous membranes Resp: good air exchange, breathing comfortably with no accessory muscle use CVS: good distal perfusion x 4, GI: soft, NTTP, ND : no SPT, no CVAT, acuna catheter not present MSK: no pitting edema, no clubbing Neuro: non-focal, moving all extremities Psych: cooperative, euthymic mood Assessment/plan: Increased Alteration in mental status in patient with a past medical history of dementia Reports of possible hallucinations History of schizophrenia, anxiety, and depression -Patient to resume home daily medication regimen with Abilify, Lamictal, and trazodone. -Psychiatry following. -We will obtain a pro-calcitonin to rule out possible infection, patient did receive 1 dose of IV Rocephin in the ER and his pro-calcitonin is positive we will reorder appropriate antibiotics at that time. -Neuro checks -Fall precautions -Provide safe and supportive care with redirection as needed. hypertension Monitor vital signs and continue daily medication regimen. Hypothyroidism Continue daily medication regimen with level thyroxine. Obstructive sleep apnea We will continue to monitor patient, recommend patient follow up outpatient with sleep study. CODE STATUS: DO NOT RESUSCITATE/DO NOT INTUBATE DVT prophylaxis: Heparin Anticipated discharge date: Pending facility acceptance Anticipated discharge place: Home with home care/palliative care versus LTC Objective - Vital Signs Vital signs: Vital Signs Temp 97.9 F 11/06/21 14:00 Pulse 100 11/06/21 14:00 Resp 16 11/06/21 07:58 BP 132/63 11/06/21 14:00 Pulse Ox 98 11/06/21 14:00 Intake & Output 11/05/21 11/06/21 11/06/21 18:59 06:59 18:59 Intake Total 100 Output Total 350 825 Balance 100 -350 -825 Weight 129.274 kg Intake: Oral 100 Output: Urine 350 825 Other: Voiding Method Indwelling Catheter Indwelling Catheter - Labs CBC & Chem 7: 11/06/21 04:01 11/06/21 04:01 Labs: Abnormal Lab Results - Last 24 Hours (Table) 11/05/21 11/06/21 11/06/21 Range/Units 20:08 04:01 04:01 WBC 2.47 L (4.50-10.00) X 10*3/uL RBC 2.77 L (4.40-5.60) X 10*6/uL Hgb 7.9 L (13.0-17.0) g/dL Hct 27.7 L (39.6-50.0) % MCV 100.0 H (80.0-97.0) fL MCHC 28.5 L (32.0-37.0) g/dL RDW 15.7 H (11.5-14.5) % Plt Count 116 L (140-440) X 10*3/uL Neutrophils # 1.29 L (1.80-7.70) X 10*3/uL Lymphocytes # 0.66 L (0.90-5.00) X 10*3/uL Carbon Dioxide 29.0 H (20.0-27.5) mmol/L Anion Gap 8.00 L (10.00-18.00) mmol/L Est GFR (CKD-EPI)NonAf 52.3 L (60.0-200.0) Procalcitonin 0.11 H (0.02-0.09) ng/mL Microbiology - Last 24 Hours (Table) 11/05/21 11:00 Blood Culture - Preliminary Blood No Growth after 24 hours
[2021-11-06] MEDS: traZODone HCL 100 MG TAB PO SCH (19:50)
[2021-11-07] MEDS: HEPARIN SODIUM,PORCINE/PF 5,000 UNIT/0.5 ML SYRINGE SQ SCH ×4 (02:40→23:17)
[2021-11-07] MEDS: LEVOTHYROXINE 88 MCG TAB PO SCH (05:25)
[2021-11-07] MEDS: BETHANECHOL 25 MG TAB PO SCH ×3 (09:01→20:55)
[2021-11-07] MEDS: METOPROLOL SUCCINATE (ER) 25 MG TAB.ER.24H PO SCH (09:01)
[2021-11-07] MEDS: FUROSEMIDE 20 MG TAB PO SCH (09:01)
[2021-11-07] MEDS: allopurinoL 300 MG TAB PO SCH (09:01)
[2021-11-07] MEDS: lamoTRIgine 100 MG TAB PO SCH ×3 (09:01→20:55)
[2021-11-07] MEDS: MUPIROCIN 2% OINT 22 GM TUBE TOPICAL SCH ×3 (09:01→20:56)
[2021-11-07] MEDS: TAMSULOSIN 0.4 MG CAP.ER.24H PO SCH ×2 (09:01→20:56)
[2021-11-07] MEDS: ARIPiprazole 10 MG TAB PO SCH (09:03)
--- NOTE | 2021-11-07 10:00 | P.PN ---
Subjective Progress Note Date: 11/07/21 No new complaints. Confusion is at his baseline. says she cannot care for him at home. CM/SW working on dispo, still pending placement. Gen: awake, alert, confused HEENT: normocephalic, atraumatic, good hearing acuity, moist mucous membranes Resp: good air exchange, breathing comfortably with no accessory muscle use CVS: good distal perfusion x 4, GI: soft, NTTP, ND : no SPT, no CVAT, acuna catheter not present MSK: no pitting edema, no clubbing Neuro: non-focal, moving all extremities Psych: cooperative, euthymic mood Assessment/plan: Increased Alteration in mental status in patient with a past medical history of dementia Reports of possible hallucinations History of schizophrenia, anxiety, and depression -Patient to resume home daily medication regimen with Abilify, Lamictal, and trazodone. -Psychiatry following. -We will obtain a pro-calcitonin to rule out possible infection, which was mildly elevated but not clinically significant -Neuro checks -Fall precautions -Provide safe and supportive care with redirection as needed. hypertension Monitor vital signs and continue daily medication regimen. Hypothyroidism Continue daily medication regimen with level thyroxine. Obstructive sleep apnea We will continue to monitor patient, recommend patient follow up outpatient with sleep study. CODE STATUS: DO NOT RESUSCITATE/DO NOT INTUBATE DVT prophylaxis: Heparin Anticipated discharge date: Pending facility acceptance Anticipated discharge place: Home with home care/palliative care versus LTC Objective - Vital Signs Vital signs: Vital Signs Temp 97.4 F L 11/07/21 08:00 Pulse 74 11/07/21 08:00 Resp 19 11/07/21 08:00 BP 164/84 11/07/21 08:00 Pulse Ox 93 L 11/07/21 08:00 Intake & Output 11/06/21 11/07/21 11/07/21 18:59 06:59 18:59 Intake Total 240 Output Total 1625 1800 Balance -1625 -1560 Intake: Oral 240 Output: Urine 1625 1800 Other: Voiding Method Indwelling Catheter Indwelling Catheter - Labs CBC & Chem 7: 11/06/21 04:01 11/06/21 04:01 Labs: Microbiology - Last 24 Hours (Table) 11/05/21 11:00 Blood Culture - Preliminary Blood No Growth after 24 hours
[2021-11-07] MEDS: traZODone HCL 100 MG TAB PO SCH (20:55)
[2021-11-08] MEDS: LEVOTHYROXINE 88 MCG TAB PO SCH (05:46)
[2021-11-08] MEDS: HEPARIN SODIUM,PORCINE/PF 5,000 UNIT/0.5 ML SYRINGE SQ SCH ×3 (07:30→23:22)
[2021-11-08] MEDS: FUROSEMIDE 20 MG TAB PO SCH (07:30)
[2021-11-08] MEDS: MUPIROCIN 2% OINT 22 GM TUBE TOPICAL SCH ×3 (07:30→21:44)
[2021-11-08] MEDS: TAMSULOSIN 0.4 MG CAP.ER.24H PO SCH ×2 (07:31→21:44)
[2021-11-08] MEDS: lamoTRIgine 100 MG TAB PO SCH ×3 (07:31→21:44)
[2021-11-08] MEDS: METOPROLOL SUCCINATE (ER) 25 MG TAB.ER.24H PO SCH (07:31)
[2021-11-08] MEDS: allopurinoL 300 MG TAB PO SCH (07:31)
[2021-11-08] MEDS: ARIPiprazole 10 MG TAB PO SCH (07:32)
[2021-11-08] MEDS: BETHANECHOL 25 MG TAB PO SCH ×3 (07:32→21:44)
--- NOTE | 2021-11-08 14:39 | P.PN ---
Subjective Patient was examined at bedside today not very verbal. Collateral information obtained by daughter present at bedside. Patient was resisting physical examination therefore was limited just to cardio and respiratory. Overall his mentation is slightly changed compared to his baseline as per family. He does have a Dutta catheter in place which wasn't present before. Objective - Vital Signs Vital signs: Vital Signs Temp 98.5 F 11/08/21 07:58 Pulse 74 11/08/21 07:58 Resp 17 11/08/21 07:58 BP 155/75 11/08/21 07:58 Pulse Ox 94 L 11/08/21 07:58 Intake & Output 11/07/21 11/08/21 11/08/21 18:59 06:59 18:59 Output Total 700 700 Balance -700 -700 Output: Urine 700 700 Other: Voiding Method Indwelling Catheter Indwelling Catheter Indwelling Catheter - Exam Physical examination very limited as the patient was resisting Cardio normal S1/S2 no murmurs appreciated Respiratory no wheezing or rhonchi appreciated bilateral air entry Dutta catheter in place however unable to examine genital area. Or examine for any suprapubic tenderness. - Labs CBC & Chem 7: 11/06/21 04:01 11/06/21 04:01 Labs: Microbiology - Last 24 Hours (Table) 11/05/21 11:00 Blood Culture - Preliminary Blood No Growth after 72 hours Assessment and Plan Plan: Increased Alteration in mental status in patient with a past medical history of dementia Reports of possible hallucinations History of schizophrenia, anxiety, and depression -Patient to resume home daily medication regimen with Abilify, Lamictal, and trazodone. -Psychiatry following. -I recommend obtaining repeat chest x-ray and urinalysis to rule out any infectious etiology. At the same time recommend removal of Dutta catheter. -Neuro checks -Fall precautions -Provide safe and supportive care with redirection as needed. hypertension Monitor vital signs and continue daily medication regimen. Hypothyroidism Continue daily medication regimen with level thyroxine. Obstructive sleep apnea We will continue to monitor patient, recommend patient follow up outpatient with sleep study. DVT prophylaxis heparin 3 times a day Anticipated discharge place: Home with home care/palliative care versus LTC? CODE STATUS: DO NOT RESUSCITATE/DO NOT INTUBATE
[2021-11-08] MEDS: traZODone HCL 100 MG TAB PO SCH (21:44)
[2021-11-09] MEDS: LEVOTHYROXINE 88 MCG TAB PO SCH (05:33)
[2021-11-09] MEDS: HEPARIN SODIUM,PORCINE/PF 5,000 UNIT/0.5 ML SYRINGE SQ SCH ×2 (09:28→16:29)
[2021-11-09] MEDS: lamoTRIgine 100 MG TAB PO SCH ×2 (09:28→16:29)
[2021-11-09] MEDS: allopurinoL 300 MG TAB PO SCH (09:29)
[2021-11-09] MEDS: FUROSEMIDE 20 MG TAB PO SCH (09:29)
[2021-11-09] MEDS: TAMSULOSIN 0.4 MG CAP.ER.24H PO SCH (09:29)
[2021-11-09] MEDS: METOPROLOL SUCCINATE (ER) 25 MG TAB.ER.24H PO SCH (09:29)
[2021-11-09] MEDS: MUPIROCIN 2% OINT 22 GM TUBE TOPICAL SCH ×2 (09:30→17:41)
[2021-11-09] MEDS: ARIPiprazole 10 MG TAB PO SCH (09:30)
[2021-11-09] MEDS: BETHANECHOL 25 MG TAB PO SCH ×2 (09:30→16:29)
[2021-11-09 11:20] LABS: ALT 26 U/L (4-49); AST 33 U/L (17-59); African American GFR (CKD) 53 (>60 ml/min/1.73 sqM); Albumin 3.6 g/dL (3.5-5.0); Albumin/Globulin Ratio 1.2; Alkaline Phosphatase 64 U/L (38-126); Anion Gap 4 mmol/L; Blood Urea Nitrogen 15 mg/dL (9-20); Calcium 9.2 mg/dL (8.4-10.2); Carbon Dioxide 30 mmol/L (22-30); Chloride 102 mmol/L (98-107); Globulin 2.9 g/dL; Glucose 81 mg/dL (74-99); Non-African American GFR(CKD) 46 (>60 ml/min/1.73 sqM); Potassium 4.1 mmol/L (3.5-5.1); Sodium 136 mmol/L (137-145); Total Bilirubin 0.7 mg/dL (0.2-1.3); Total Protein 6.5 g/dL (6.3-8.2)
[2021-11-09 11:26] LABS: HCT 32.8 % (39.0-53.0); HGB 9.7 gm/dL (13.0-17.5); Hypochromasia Marked; MCH 29.8 pg (25.0-35.0); MCHC 29.6 g/dL (31.0-37.0); MCV 100.7 fL (80.0-100.0); Macrocytosis Slight; Mean Platelet Volume 7.9; Platelet Count 158 k/uL (150-450); RBC 3.26 m/uL (4.30-5.90); RDW 15.6 % (11.5-15.5); WBC 2.4 k/uL (3.8-10.6)
--- NOTE | 2021-11-09 12:44 | P.DS ---
Providers Date of admission: 11/07/21 12:32 Expected date of discharge: 11/09/21 Attending physician: Vito Montague Consults: 11/05/21 11:35 Consult Physician Urgent Consulting Provider: Daniel Blandon Consult Reason/Comments: leon, dionisio schizophrenia Do you want consulting provider notified?: Yes Primary care physician: [facility] Course: Patient is a 76-year-old male with a past medical history of dementia, rheumatoid arthritis, hypertension, obstructive sleep apnea unable to tolerate CPAP/BiPAP, hypothyroidism, schizophrenia, anxiety, and depression. He prese nted to the emergency department with a chief complaint of alteration in mental status. Patient's reports he was recently released from [facility] after diagnosis of pneumonia and renal failure and that her has exhibited increased confusion over the past 24 hours. She reports upon awakening this morning he did not recognize her and was using the TV remote as his incentive spirometer so she called EMS for further evaluation. In the emergency department, patient underwent full evaluation. An EKG was completed revealing sinus rhythm at 71 bpm with no noted T-wave or ST abnormalities showing no signs of acute ischemia. Chest x-ray revealing or stumble pulmonary edema. Labs revealing pancytopenia with WBC count of 2.3, hemoglobin of 8.3, and platelet count of 106. Venous blood gas revealing compensated metabolic acidosis with pH of 7.36 pCO2 of 57 and bicarb of 32. BUN 30, creatinine 1.35, and GFR 50. Urinalysis revealing trace blood, 17 RBCs, and 6 WBCs. Urine drug screen negative. CT head and CT spine negative for injuries. Upon evaluation at bedside, patient's reports patient currently had normal mentation and alert to person and place only. Patient's states that she brought her here because she is concerned that he becomes hypoxic overnight and this is why he is confused in the mornings and states while he is here she would also like him seen by his urologist because he has an appointment next week and would like him to see him while he is in the hospital. She denies Her recently experiencing any fever, chills, diaphoresis, complaints of nausea, or vomiting. She denies increased swelling in his lower extremities. Patient also states that she is pretty sure her has been hallucinating and would like him evaluated by the psychiatrist. Patient appears to be resting comfortably and denies having any complaints or pain. Vital signs unremarkable with blood pressure 137/78, heart rate 66, respiratory rate 18, and SpO2 of 99% on room air. 11/09: Patient has been afebrile, heart rate 70, blood pressure 109/55, pulse ox 93% on room air. Repeat blood work reveals WBC [age]-year-old woman 9.7, p latelet count 158. Sodium 136, BUN 15 creatinine 1.44. Culture no growth after 72 hours. Patient has been denied and local nursing homes. [employer] division manager is working on discharge plan and waiting for callback from patient's . Patient is medically stable. No new concerns from his nurse. Patient will be discharged once arrangements are completed. DISCHARGE DIAGNOSES Increased Alteration in mental status due to worsening dementia Reports of possible hallucinations History of schizophrenia, anxiety, and depression Hypertension Hypothyroidism Obstructive sleep apnea Pancytopenia DISCHARGE PLAN Subacute rehab Greater than 35 minutes was utilized and coordinating patient's discharge. Impression and plan of care have been directed as dictated by the signing physician. Erendira Baker nurse practitioner acting as scribe for signing physician. Patient Condition at Discharge: Stable Plan - Discharge Summary Discharge Rx Participant: No New Discharge Prescriptions: Continue traZODone HCL [Desyrel] 100 mg PO HS Tamsulosin HCl [Flomax] 0.4 mg PO BID lamoTRIgine [LaMICtal] 200 mg PO TID Furosemide [Lasix] 20 mg PO DAILY ARIPiprazole [Abilify] 10 mg PO DAILY Metoprolol Succinate (ER) [Toprol XL] 25 mg PO DAILY Bethanechol Chloride 50 mg PO TID Levothyroxine Sodium 88 mcg PO DAILY Allopurinol [Zyloprim] 300 mg PO DAILY Mupirocin 2% Oint [Bactroban 2% Oint] 1 applic TOPICAL TID Discharge Medication List ARIPiprazole [Abilify] 10 mg PO DAILY 07/23/18 [History] Furosemide [Lasix] 20 mg PO DAILY 07/23/18 [History] Tamsulosin HCl [Flomax] 0.4 mg PO BID 07/23/18 [History] lamoTRIgine [LaMICtal] 200 mg PO TID 07/23/18 [History] traZODone HCL [Desyrel] 100 mg PO HS 07/23/18 [History] Allopurinol [Zyloprim] 300 mg PO DAILY 11/05/21 [History] Bethanechol Chloride 50 mg PO TID 11/05/21 [History] Levothyroxine Sodium 88 mcg PO DAILY 11/05/21 [History] Metoprolol Succinate (ER) [Toprol XL] 25 mg PO DAILY 11/05/21 [History] Mupirocin 2% Oint [Bactroban 2% Oint] 1 applic TOPICAL TID 11/05/21 [History] Follow up Appointment(s)/Referral(s): Dasha Palumbo MD [Primary Care Provider] - 1 Week (after discharge from [facility]) Activity/Diet/Wound Care/Special Instructions: Keep Dutta catheter and [facility], monitor for urinary retention with postvoid residual bladder scans. Discharge Disposition: TRANSFER TO SNF/ECF
[2021-11-09 15:12] VITALS: BP 127/72; PULSE 68; RESP 18; TEMP 97.7
== END 2021-11-09 18:08 | disposition home health service (06) | DRG 884 ==
LOC: EC 07:38 → 4SSUR 11:01 → OBSVTOIN 11-07 12:32
PROVIDERS: ADMIT Internal Medicine Geriatric Medicine; ATTEND Internal Medicine Geriatric Medicine
DX: F03.90 Unspecified dementia, unspecified severity, without behavioral disturbance, psychotic disturbance, mood disturbance, and anxiety (principal); D61.818 Other pancytopenia; E87.2 Acidosis; J81.1 Chronic pulmonary edema; I10 Essential (primary) hypertension; Z66 Do not resuscitate; G47.33 Obstructive sleep apnea (adult) (pediatric); E03.9 Hypothyroidism, unspecified; F20.9 Schizophrenia, unspecified; F32.A Depression, unspecified; F41.9 Anxiety disorder, unspecified; M06.9 Rheumatoid arthritis, unspecified; Z79.890 Hormone replacement therapy; Z79.899 Other long term (current) drug therapy; Z87.01 Personal history of pneumonia (recurrent)
CPT/HCPCS: 36415; 70450; 71046; 72125; 80048; 80053; 80143; 80175; 80179; 80306; 80320; 81001; 82140; 82803; 83605; 84145; 84439; 84443; 84484; 85025; 85027; 85610; 85730; 87040; 93005; 96374; 99285